=== PATIENT | female | born 1930 | race Caucasian/White ===

== ENCOUNTER 2018-11-04 21:11 | Inpatient (IN) | payer MEDICARE, OTHER ==
[2018-11-05 01:43] LABS: URINE PH (Dip) POC 5.5 (5.0-8.5)
[2018-11-05 01:43] LABS: URINE BLOOD (Dip) POC Negative (NEGATIVE); URINE GLUCOSE (Dip) POC Negative (NEGATIVE); URINE KETONES (Dip) POC 3+ (NEGATIVE); URINE LEUKOCYTE EST (Dip) POC Negative (NEGATIVE); URINE NITRITE (Dip) POC Negative (NEGATIVE); URINE TOTAL PROTEIN POC 1+ (NEGATIVE)
[2018-11-05 01:59] LABS: ADD MAN DIFF? NO
[2018-11-05 02:01] LABS: WHITE BLOOD COUNT 7.9 10^3/ul (4.8-10.8)
[2018-11-05 02:01] LABS: BASOPHILS % 0.5 % (0.0-2.0); EOSINOPHILS % 0.4 % (0.0-7.0); HEMATOCRIT 43.4 % (37.0-47.0); HEMOGLOBIN 14.8 g/dl (12.0-16.0); LYMPHOCYTES # 1.2 10^3/ul (0.8-2.9); LYMPHOCYTES % 15.4 % (15.0-51.0); MEAN CORPUSCULAR HGB CONC 34.1 g/dl (32.0-37.0); MEAN CORPUSCULAR VOLUME 87.9 fl (82.0-101.0); MEAN PLATELET VOLUME 10.8 fl (7.4-10.4); MONOCYTE # 0.5 10^3/ul (0.3-0.9); MONOCYTES % 6.2 % (0.0-11.0); NEUTROPHIL # 6.1 10^3/ul (1.6-7.5); NEUTROPHILS % 77.2 % (39.0-77.0); PLATELET COUNT 329 10^3/UL (140-415); RED BLOOD COUNT 4.94 10^6/ul (4.20-5.40); RED CELL DISTRIBUTION WIDTH 13.6 % (11.5-14.5)
[2018-11-05 02:20] LABS: ALANINE AMINOTRANSFERASE 25 IU/L (13-69); ALBUMIN/GLOBULIN RATIO 1.05; ALKALINE PHOSPHATASE 160 IU/L (42-121); ANION GAP 9 (5-13); ASPARTATE AMINO TRANSFERASE 32 IU/L (15-46); BILIRUBIN,INDIRECT 0.8 mg/dl (0-1.1); BILIRUBIN,TOTAL 0.8 mg/dl (0.2-1.3); BLOOD UREA NITROGEN 15 mg/dl (7-20); CALCIUM 9.8 mg/dl (8.4-10.2); CARBON DIOXIDE 27 mmol/L (21-31); CHLORIDE 98 mmol/L (97-110); CREATININE 0.51 mg/dl (0.44-1.00); GLUCOSE 116 mg/dl (70-220); INR 0.94; POTASSIUM 3.9 mmol/L (3.5-5.1); PROTIME 12.7 Sec (11.9-14.9); SODIUM 134 mmol/L (135-144); TOTAL PROTEIN 7.8 g/dl (6.1-8.1)
[2018-11-05 02:21] LABS: PARTIAL THROMBOPLASTIN TIME 30.5 Sec (23.0-35.0)
[2018-11-05 02:23] LABS: D-DIMER 1955.67 ng/ml (<460)
[2018-11-05] MEDS: SOD CHLORIDE 0.9% 100 ML (03:47)
[2018-11-05] MEDS: IOHEXOL 100 ML (03:47)
[2018-11-05 04:07] LABS: B-TYPE NATRIURETIC PEPTIDE 769 PG/ML (0-450); TROPONIN-I < 0.012 ng/ml (0.000-0.120)
[2018-11-05] MEDS ORDERED: ONDANSETRON 4 MG INJ IV (06:30)
[2018-11-05] MEDS ORDERED: ACETAMINOPHEN 325 MG TAB PO (06:30)
[2018-11-05] MEDS: FUROSEMIDE 40 MG INJ IV (06:46)
[2018-11-05] MEDS: NACL 0.9% 3 ML SYG IV ×2 (06:46→06:47)
[2018-11-05 10:36] LABS: CREATINE KINASE 66 IU/L (23-200)
[2018-11-05 10:47] LABS: CK INDEX 2.5; CK-MB 1.65 ng/ml (0.0-2.4); TROPONIN-I < 0.012 ng/ml (0.000-0.120)
[2018-11-05] MEDS: ENALAPRIL 10 MG TAB PO (11:00)
[2018-11-05] MEDS: DULOXETINE 30 MG CAP DR PO (11:00)
[2018-11-05] MEDS: AMLODIPINE 2.5 MG TAB PO (11:00)
[2018-11-05] MEDS ORDERED: NACL 0.9% 3 ML SYG IV (11:30)
[2018-11-05 11:58] LABS: LACTATE DEHYDROGENASE 584 IU/L (313-618)
[2018-11-05] MEDS: FAMOTIDINE 20 MG TAB PO (12:00)
[2018-11-05] MEDS ORDERED: CALCIUM CARBONATE 500 MG CHEW TAB PO (13:00)
[2018-11-05 16:24] LABS: CREATINE KINASE 77 IU/L (23-200)
[2018-11-05 16:37] LABS: CK INDEX 2.3; CK-MB 1.77 ng/ml (0.0-2.4); TROPONIN-I < 0.012 ng/ml (0.000-0.120)
[2018-11-05] MEDS: ACETAMINOPHEN 325 MG TAB PO (19:53)
[2018-11-06 05:58] LABS: ADD MAN DIFF? NO
[2018-11-06 06:06] LABS: BASOPHIL # 0.1 10^3/ul (0.0-0.1); BASOPHILS % 0.7 % (0.0-2.0); EOSINOPHILS # 0.1 10^3/ul (0.0-0.5); EOSINOPHILS % 0.6 % (0.0-7.0); HEMATOCRIT 44.1 % (37.0-47.0); HEMOGLOBIN 14.8 g/dl (12.0-16.0); LYMPHOCYTES # 1.3 10^3/ul (0.8-2.9); LYMPHOCYTES % 16.4 % (15.0-51.0); MEAN CORPUSCULAR HGB CONC 33.6 g/dl (32.0-37.0); MEAN CORPUSCULAR VOLUME 89.3 fl (82.0-101.0); MEAN PLATELET VOLUME 11.2 fl (7.4-10.4); MONOCYTE # 0.7 10^3/ul (0.3-0.9); NEUTROPHIL # 5.9 10^3/ul (1.6-7.5); NEUTROPHILS % 73.1 % (39.0-77.0); PLATELET COUNT 335 10^3/UL (140-415); RED BLOOD COUNT 4.94 10^6/ul (4.20-5.40); RED CELL DISTRIBUTION WIDTH 13.9 % (11.5-14.5)
[2018-11-06 06:06] LABS: WHITE BLOOD COUNT 8.1 10^3/ul (4.8-10.8)
[2018-11-06 06:41] LABS: ALANINE AMINOTRANSFERASE 21 IU/L (13-69); ALBUMIN 3.5 g/dl (3.3-4.9); ALBUMIN/GLOBULIN RATIO 1.02; ALKALINE PHOSPHATASE 135 IU/L (42-121); ANION GAP 9 (5-13); ASPARTATE AMINO TRANSFERASE 33 IU/L (15-46); BILIRUBIN,INDIRECT 0.6 mg/dl (0-1.1); BILIRUBIN,TOTAL 0.6 mg/dl (0.2-1.3); BLOOD UREA NITROGEN 16 mg/dl (7-20); CALCIUM 9.6 mg/dl (8.4-10.2); CARBON DIOXIDE 31 mmol/L (21-31); CHLORIDE 96 mmol/L (97-110); CHOL/HDL RATIO 4.2 RATIO; CHOLESTEROL 198 mg/dl (100-200); CREATININE 0.65 mg/dl (0.44-1.00); GLUCOSE 109 mg/dl (70-220); HDL CHOLESTEROL 47 mg/dl (33-92); LDL CHOLESTEROL,CALCULATED 131 mg/dl; POTASSIUM 4.3 mmol/L (3.5-5.1); SODIUM 136 mmol/L (135-144); TOTAL PROTEIN 6.9 g/dl (6.1-8.1); TRIGLYCERIDES 102 mg/dl (0-149)
[2018-11-06 07:42] LABS: HEMOGLOBIN A1C 5.5 % (0-5.9)
[2018-11-06] MEDS: AMLODIPINE 2.5 MG TAB PO (09:42)
[2018-11-06] MEDS: FAMOTIDINE 20 MG TAB PO (09:42)
[2018-11-06] MEDS: DULOXETINE 30 MG CAP DR PO (09:42)
[2018-11-06] MEDS: ENALAPRIL 10 MG TAB PO (09:42)
[2018-11-06] MEDS: ACETAMINOPHEN 325 MG TAB PO ×2 (10:17→16:04)
[2018-11-06 11:20] LABS: FREE T4 (FREE THYROXINE) 0.43 ng/dl (0.85-1.93)
[2018-11-07] MEDS: LEVOTHYROXINE 50 MCG TAB GTB (05:55)
[2018-11-07 06:34] LABS: ADD MAN DIFF? NO
[2018-11-07 06:41] LABS: BASOPHIL # 0.1 10^3/ul (0.0-0.1); BASOPHILS % 0.8 % (0.0-2.0); EOSINOPHILS # 0.1 10^3/ul (0.0-0.5); EOSINOPHILS % 1.2 % (0.0-7.0); HEMATOCRIT 41.3 % (37.0-47.0); LYMPHOCYTES # 1.5 10^3/ul (0.8-2.9); LYMPHOCYTES % 19.5 % (15.0-51.0); MEAN CORPUSCULAR HEMOGLOBIN 29.9 pg (29.0-33.0); MEAN CORPUSCULAR HGB CONC 33.9 g/dl (32.0-37.0); MEAN CORPUSCULAR VOLUME 88.2 fl (82.0-101.0); MEAN PLATELET VOLUME 11.4 fl (7.4-10.4); MONOCYTE # 0.8 10^3/ul (0.3-0.9); MONOCYTES % 10.2 % (0.0-11.0); PLATELET COUNT 315 10^3/UL (140-415); RED BLOOD COUNT 4.68 10^6/ul (4.20-5.40); RED CELL DISTRIBUTION WIDTH 13.7 % (11.5-14.5)
[2018-11-07 06:41] LABS: WHITE BLOOD COUNT 7.4 10^3/ul (4.8-10.8)
[2018-11-07 07:01] LABS: PROTIME 13.3 Sec (11.9-14.9)
[2018-11-07 07:28] LABS: PHOSPHORUS 3.9 mg/dl (2.5-4.9)
[2018-11-07 07:33] LABS: ANION GAP 6 (5-13); BLOOD UREA NITROGEN 14 mg/dl (7-20); CALCIUM 9.2 mg/dl (8.4-10.2); CARBON DIOXIDE 31 mmol/L (21-31); CHLORIDE 95 mmol/L (97-110); CREATININE 0.65 mg/dl (0.44-1.00); GLUCOSE 99 mg/dl (70-220); POTASSIUM 3.5 mmol/L (3.5-5.1); SODIUM 132 mmol/L (135-144)
[2018-11-07] MEDS: AMLODIPINE 2.5 MG TAB PO (08:47)
[2018-11-07] MEDS: ENALAPRIL 10 MG TAB PO (08:47)
[2018-11-07] MEDS: FAMOTIDINE 20 MG TAB PO (08:47)
[2018-11-07] MEDS: DULOXETINE 30 MG CAP DR PO (08:47)
[2018-11-07] MEDS: ENOXAPARIN 30 MG/0.3 ML SYG SC (09:11)
[2018-11-07] MEDS: LIDOCAINE 1% (MPF) 5 ML VIAL (10:45)
[2018-11-07] MEDS: ACETAMINOPHEN 325 MG TAB PO (11:13)
[2018-11-07 11:53] LABS: FLD MN% 93.2 %; FLD PMN% 6.8 %; FLD RBC 1000 /uL; FLD WBC 548 /cmm
[2018-11-07 12:21] LABS: FLUID LD 265 U/L; FLUID TOTAL PROTEIN 4.2 g/dl; FLUID TYPE THORACENTESIS FLUID
[2018-11-07 12:26] LABS: FLUID GLUCOSE 126 mg/dl; FLUID TYPE THORACENTESIS FLUID
[2018-11-07 13:01] LABS: FLD TYPE THORACENTHESIS
[2018-11-07 13:01] LABS: FLD CLARITY SLIGHTLY HAZY; FLD COLOR YELLOW
[2018-11-08] MEDS: LEVOTHYROXINE 50 MCG TAB GTB (06:25)
[2018-11-08] MEDS: ENALAPRIL 5 MG TAB PO (08:20)
[2018-11-08] MEDS: FAMOTIDINE 20 MG TAB PO (08:20)
[2018-11-08] MEDS: DULOXETINE 30 MG CAP DR PO (08:20)
[2018-11-08] MEDS: ONDANSETRON 4 MG INJ IV (08:27)
[2018-11-08] MEDS: ENOXAPARIN 30 MG/0.3 ML SYG SC (08:56)
[2018-11-08] MEDS: LEVOTHYROXINE 25 MCG TAB GTB (09:01)
[2018-11-08] MEDS: FUROSEMIDE 20 MG INJ IV (16:32)
[2018-11-08] MEDS: DOCUSATE SODIUM 100 MG CAP PO (18:19)
[2018-11-08] MEDS: BISACODYL (EC) 5 MG TAB PO (18:19)
[2018-11-08] MEDS: COLCHICINE 0.6 MG CAP PO (21:06)
[2018-11-09] MEDS: LEVOTHYROXINE 75 MCG TAB PO (05:17)
[2018-11-09 05:48] LABS: ADD MAN DIFF? NO
[2018-11-09 05:55] LABS: BASOPHIL # 0.1 10^3/ul (0.0-0.1); BASOPHILS % 0.8 % (0.0-2.0); EOSINOPHILS # 0.1 10^3/ul (0.0-0.5); EOSINOPHILS % 1.6 % (0.0-7.0); HEMATOCRIT 42.6 % (37.0-47.0); HEMOGLOBIN 14.3 g/dl (12.0-16.0); LYMPHOCYTES # 1.4 10^3/ul (0.8-2.9); LYMPHOCYTES % 15.7 % (15.0-51.0); MEAN CORPUSCULAR HEMOGLOBIN 30.2 pg (29.0-33.0); MEAN CORPUSCULAR HGB CONC 33.6 g/dl (32.0-37.0); MEAN CORPUSCULAR VOLUME 90.1 fl (82.0-101.0); MEAN PLATELET VOLUME 11.4 fl (7.4-10.4); MONOCYTE # 0.7 10^3/ul (0.3-0.9); MONOCYTES % 8.3 % (0.0-11.0); NEUTROPHIL # 6.3 10^3/ul (1.6-7.5); NEUTROPHILS % 73.4 % (39.0-77.0); PLATELET COUNT 306 10^3/UL (140-415); RED BLOOD COUNT 4.73 10^6/ul (4.20-5.40); RED CELL DISTRIBUTION WIDTH 13.9 % (11.5-14.5)
[2018-11-09 05:55] LABS: WHITE BLOOD COUNT 8.6 10^3/ul (4.8-10.8)
[2018-11-09 06:12] LABS: ANION GAP 8 (5-13); BLOOD UREA NITROGEN 20 mg/dl (7-20); CALCIUM 9.2 mg/dl (8.4-10.2); CARBON DIOXIDE 33 mmol/L (21-31); CHLORIDE 91 mmol/L (97-110); CREATININE 0.78 mg/dl (0.44-1.00); GLUCOSE 106 mg/dl (70-220); POTASSIUM 3.7 mmol/L (3.5-5.1); SODIUM 132 mmol/L (135-144)
[2018-11-09] MEDS: COLCHICINE 0.6 MG CAP PO (08:17)
[2018-11-09] MEDS: FUROSEMIDE 20 MG INJ IV ×2 (08:18→17:38)
[2018-11-09] MEDS: DULOXETINE 30 MG CAP DR PO (08:18)
[2018-11-09] MEDS: FAMOTIDINE 20 MG TAB PO (08:18)
[2018-11-09] MEDS: ENOXAPARIN 30 MG/0.3 ML SYG SC (08:38)
[2018-11-09 14:01] LABS: FREE T4 (FREE THYROXINE) 0.59 ng/dl (0.85-1.93)
[2018-11-09] MEDS: ACETAMINOPHEN 325 MG TAB PO (16:19)
[2018-11-09] MEDS: POTASSIUM CHLORIDE (SR) 20 MEQ TAB PO (17:37)
[2018-11-10] MEDS: LEVOTHYROXINE 75 MCG TAB PO (05:41)
[2018-11-10 06:19] LABS: ADD MAN DIFF? NO
[2018-11-10 06:24] LABS: BASOPHIL # 0.1 10^3/ul (0.0-0.1); BASOPHILS % 0.8 % (0.0-2.0); EOSINOPHILS # 0.1 10^3/ul (0.0-0.5); EOSINOPHILS % 1.4 % (0.0-7.0); HEMATOCRIT 43.5 % (37.0-47.0); LYMPHOCYTES # 1.5 10^3/ul (0.8-2.9); LYMPHOCYTES % 18.6 % (15.0-51.0); MEAN CORPUSCULAR HEMOGLOBIN 30.2 pg (29.0-33.0); MEAN CORPUSCULAR HGB CONC 34.5 g/dl (32.0-37.0); MEAN CORPUSCULAR VOLUME 87.5 fl (82.0-101.0); MEAN PLATELET VOLUME 11.2 fl (7.4-10.4); MONOCYTE # 0.6 10^3/ul (0.3-0.9); MONOCYTES % 7.8 % (0.0-11.0); NEUTROPHIL # 5.5 10^3/ul (1.6-7.5); NEUTROPHILS % 71.1 % (39.0-77.0); PLATELET COUNT 307 10^3/UL (140-415); RED BLOOD COUNT 4.97 10^6/ul (4.20-5.40); RED CELL DISTRIBUTION WIDTH 13.5 % (11.5-14.5)
[2018-11-10 06:24] LABS: WHITE BLOOD COUNT 7.8 10^3/ul (4.8-10.8)
[2018-11-10 06:41] LABS: MAGNESIUM 1.8 mg/dl (1.7-2.5)
[2018-11-10 06:55] LABS: ALANINE AMINOTRANSFERASE 37 IU/L (13-69); ALBUMIN 3.6 g/dl (3.3-4.9); ALBUMIN/GLOBULIN RATIO 1.02; ALKALINE PHOSPHATASE 160 IU/L (42-121); ANION GAP 7 (5-13); ASPARTATE AMINO TRANSFERASE 53 IU/L (15-46); BILIRUBIN,INDIRECT 0.6 mg/dl (0-1.1); BILIRUBIN,TOTAL 0.6 mg/dl (0.2-1.3); BLOOD UREA NITROGEN 15 mg/dl (7-20); CALCIUM 9.4 mg/dl (8.4-10.2); CARBON DIOXIDE 34 mmol/L (21-31); CHLORIDE 90 mmol/L (97-110); CREATININE 0.71 mg/dl (0.44-1.00); GLUCOSE 103 mg/dl (70-220); POTASSIUM 4.2 mmol/L (3.5-5.1); SODIUM 131 mmol/L (135-144); TOTAL PROTEIN 7.1 g/dl (6.1-8.1)
[2018-11-10 06:58] LABS: T3 UPTAKE 31.3 % (23.5-40.5)
[2018-11-10 06:59] LABS: T4 (THYROXINE) 4.8 ug/dl (5.5-11.0)
[2018-11-10] MEDS: FAMOTIDINE 20 MG TAB PO (08:13)
[2018-11-10] MEDS: DULOXETINE 30 MG CAP DR PO (08:13)
[2018-11-10] MEDS: FUROSEMIDE 20 MG INJ IV ×2 (08:13→15:48)
[2018-11-10] MEDS: COLCHICINE 0.6 MG CAP PO (08:13)
[2018-11-10] MEDS: ENOXAPARIN 30 MG/0.3 ML SYG SC (08:53)
[2018-11-10 12:47] LABS: LIPASE 99 U/L (23-300)
[2018-11-10] MEDS: PANTOPRAZOLE (EC) 40 MG TAB PO (17:44)
[2018-11-10] MEDS: MAGNESIUM SULFATE 2 GM/50 ML 50 ML IVPB (17:44)
[2018-11-11 05:09] LABS: ADD MAN DIFF? NO
[2018-11-11 05:12] LABS: WHITE BLOOD COUNT 7.1 10^3/ul (4.8-10.8)
[2018-11-11 05:12] LABS: BASOPHIL # 0.1 10^3/ul (0.0-0.1); BASOPHILS % 1.1 % (0.0-2.0); EOSINOPHILS # 0.1 10^3/ul (0.0-0.5); EOSINOPHILS % 1.4 % (0.0-7.0); HEMATOCRIT 45.7 % (37.0-47.0); HEMOGLOBIN 15.6 g/dl (12.0-16.0); LYMPHOCYTES # 1.2 10^3/ul (0.8-2.9); LYMPHOCYTES % 16.8 % (15.0-51.0); MEAN CORPUSCULAR HEMOGLOBIN 30.2 pg (29.0-33.0); MEAN CORPUSCULAR HGB CONC 34.1 g/dl (32.0-37.0); MEAN CORPUSCULAR VOLUME 88.6 fl (82.0-101.0); MEAN PLATELET VOLUME 11.2 fl (7.4-10.4); MONOCYTE # 0.7 10^3/ul (0.3-0.9); MONOCYTES % 9.4 % (0.0-11.0); PLATELET COUNT 322 10^3/UL (140-415); RED BLOOD COUNT 5.16 10^6/ul (4.20-5.40); RED CELL DISTRIBUTION WIDTH 13.6 % (11.5-14.5)
[2018-11-11 05:38] LABS: MAGNESIUM 2.4 mg/dl (1.7-2.5)
[2018-11-11 05:46] LABS: ANION GAP 8 (5-13); BLOOD UREA NITROGEN 17 mg/dl (7-20); CALCIUM 9.4 mg/dl (8.4-10.2); CARBON DIOXIDE 35 mmol/L (21-31); CHLORIDE 87 mmol/L (97-110); CREATININE 0.77 mg/dl (0.44-1.00); GLUCOSE 114 mg/dl (70-220); SODIUM 130 mmol/L (135-144)
[2018-11-11] MEDS: PANTOPRAZOLE (EC) 40 MG TAB PO (06:15)
[2018-11-11] MEDS: LEVOTHYROXINE 75 MCG TAB PO (06:15)
[2018-11-11] MEDS: DULOXETINE 30 MG CAP DR PO (09:22)
[2018-11-11] MEDS: COLCHICINE 0.6 MG CAP PO (09:23)
[2018-11-11] MEDS: FUROSEMIDE 20 MG INJ IV (09:23)
[2018-11-11] MEDS: LISINOPRIL 5 MG TAB PO (09:23)
[2018-11-11] MEDS: ENOXAPARIN 30 MG/0.3 ML SYG SC (09:27)
[2018-11-11] MEDS: ACETAMINOPHEN 325 MG TAB PO (09:30)
== END 2018-11-11 17:36 | disposition home health service (06) | DRG 187 ==
LOC: E/R 21:11 → 6WM 11-05 06:08
PROC: 0W993ZX Drainage of Right Pleural Cavity, Percutaneous Approach, Diagnostic (ICD-10-PCS; principal; 2018-11-07)
DX: J90 Pleural effusion, not elsewhere classified (principal); I31.3 Pericardial effusion (noninflammatory); E03.9 Hypothyroidism, unspecified; K21.9 Gastro-esophageal reflux disease without esophagitis; M79.7 Fibromyalgia; I10 Essential (primary) hypertension
CPT/HCPCS: 32555; 36415; 71045; 71275; 76604; 76705; 80048; 80053; 80061; 81003; 82550; 82553; 82945; 83036; 83615; 83690; 83735; 83880; 84100; 84157; 84436; 84439; 84443; 84479; 84484; 85025; 85378; 85610; 85730; 87070; 87102; 87116; 88104; 88305; 89051; 93005; 93306; 93308; 97161; 97530; 99285-25